=== PATIENT | female | born 1960 | race Caucasian/White ===

== ENCOUNTER 2017-10-11 13:02 | Inpatient (IN) | payer OTHER, SELFPAY ==
[~2017-10-11] VITALS: Ht 167.6 cm; Wt 82.0 kg
[2017-10-11 14:15] LABS: BASOPHILS # (AUTO) 0.02 x10^3/uL (0-0.1); BASOPHILS % (AUTO) 0 % (0-1); EOSINOPHILS # (AUTO) 0.07 x10^3/uL (0-0.4); EOSINOPHILS % (AUTO) 1 % (1-7); LYMPHOCYTES # (AUTO) 1.58 x10^3/uL (1-3.4); LYMPHOCYTES % (AUTO) 20 % (22-44); MD NO; MEAN CORPUSCULAR HEMOGLOBIN 22.7 pg (27.0-34.8); MEAN CORPUSCULAR HGB CONC 31.6 g/dL (32.4-35.8); MEAN CORPUSCULAR VOLUME 71.7 fL (80-100); MONOCYTES # (AUTO) 0.96 x10^3/uL (0.2-0.8); MONOCYTES % (AUTO) 12 % (2-9); NEUTROPHILS # (AUTO) 5.42 x10^3/uL (1.8-6.8); NEUTROPHILS % (AUTO) 67 % (42-75); PLATELET COUNT 325 x10^3/uL (130-400); RED BLOOD COUNT 6.22 x10^6/uL (3.82-5.3); RED CELL DISTRIBUTION WIDTH 15.6 % (9.6-15.2)
[2017-10-11 14:23] LABS: ALANINE AMINOTRANSFERASE 60 U/L (12-78); ALBUMIN 3.5 g/dL (3.4-5.0); ANION GAP 9 mmol/L (5-15); CALCIUM 9.1 mg/dL (8.5-10.1); CHLORIDE 93 mmol/L (98-107); CREATININE 0.83 mg/dL (0.55-1.02)
[2017-10-11] MEDS ORDERED: SPIR50TA2 PO (14:25)
[2017-10-11] MEDS ORDERED: VALS320T2 PO (14:25)
[2017-10-11 14:26] LABS: ALKALINE PHOSPHATASE 168 U/L (45-117); BILIRUBIN,TOTAL 1.2 mg/dL (0.2-1.0); TOTAL PROTEIN 6.1 g/dL (6.4-8.2)
[2017-10-11] MEDS ORDERED: VERAPAMIL 2.5 MG/ML, 2ML ONE (14:27)
[2017-10-11] MEDS ORDERED: ASPIRIN 81 MG TABLET CHEW ONE (14:27)
[2017-10-11] MEDS ORDERED: ASPIRIN 81 MG TABLET CHEW PO ONE (14:30)
[2017-10-11] MEDS ORDERED: VERAPAMIL 2.5 MG/ML, 2ML IVPush ONE (14:30)
[2017-10-11] MEDS ORDERED: SODIUM CHLORIDE FLUSH 10ML SYR IVF ONE (14:30)
[2017-10-11 14:39] LABS: INTERNATIONAL NORMALIZED RATIO 1.14 (0.93-1.1); PROTHROMBIN TIME 11.7 Seconds (9.6-11.5)
[2017-10-11 14:47] LABS: TROPONIN I < 0.015 ng/mL (0.000-0.045)
[2017-10-11] MEDS ORDERED: ENOXAPARIN 80 MG/0.8 ML ONE (14:55)
[2017-10-11] MEDS ORDERED: ENOXAPARIN 80 MG/0.8 ML SQ SCH (15:00)
[2017-10-11] MEDS ORDERED: SODIUM CHLORIDE FLUSH 10ML SYR IVF PRN (16:30)
[2017-10-11 16:47] VITALS: BP 136/93
[2017-10-11] MEDS: METOPROLOL TARTRATE 25 MG TABLET PO SCH (18:00)
[2017-10-11] MEDS ORDERED: METOCLOPRAMIDE 5 MG/ML, 2ML IVPush PRN (18:00)
[2017-10-11] MEDS ORDERED: ONDANSETRON 2MG/ML, 2ML IVPush PRN (18:00)
[2017-10-11] MEDS ORDERED: ENOXAPARIN 40 MG/0.4 ML SQ SCH (18:00)
[2017-10-11] MEDS ORDERED: ONDANSETRON ODT 4 MG PO PRN (18:00)
[2017-10-11] MEDS: SODIUM CHLORIDE 0.9% 1,000 ML IV SCH (18:00)
[2017-10-11 18:10] LABS: HEMOGLOBIN A1C 5.3 % (4.2-6.3)
[2017-10-11] MEDS: GABAPENTIN 300 MG CAPSULE PO SCH (20:31)
[2017-10-11 20:33] VITALS: BP 109/79
[2017-10-12] MEDS: SODIUM CHLORIDE 0.9% 1,000 ML IV SCH ×3 (00:37→23:24)
[2017-10-12] MEDS: METOPROLOL TARTRATE 25 MG TABLET PO SCH ×3 (00:37→23:22)
[2017-10-12] MEDS ORDERED: KETOROLAC 30 MG/1 ML IVPush ONE (02:30)
[2017-10-12 03:40] VITALS: BP 112/78
[2017-10-12] MEDS ORDERED: PNEUMOCOCCAL 23 VACCINE IM-VACC ONE ×2 (05:00→07:30)
[2017-10-12 05:01] LABS: ALBUMIN 2.9 g/dL (3.4-5.0); ANION GAP 9 mmol/L (5-15); CALCIUM 8.2 mg/dL (8.5-10.1); CHLORIDE 94 mmol/L (98-107)
[2017-10-12 05:06] LABS: ALANINE AMINOTRANSFERASE 80 U/L (12-78); ALKALINE PHOSPHATASE 176 U/L (45-117); BILIRUBIN,TOTAL 1.4 mg/dL (0.2-1.0); CREATININE 0.78 mg/dL (0.55-1.02); TOTAL PROTEIN 5.1 g/dL (6.4-8.2)
[2017-10-12] MEDS ORDERED: RIVAROXABAN 20 MG TABLET PO SCH (06:00)
[2017-10-12 06:33] LABS: BASOPHILS # (AUTO) 0.04 x10^3/uL (0-0.1); BASOPHILS % (AUTO) 1 % (0-1); EOSINOPHILS # (AUTO) 0.14 x10^3/uL (0-0.4); EOSINOPHILS % (AUTO) 2 % (1-7); LYMPHOCYTES # (AUTO) 1.66 x10^3/uL (1-3.4); LYMPHOCYTES % (AUTO) 26 % (22-44); MD SCAN; MEAN CORPUSCULAR HEMOGLOBIN 22.6 pg (27.0-34.8); MEAN CORPUSCULAR HGB CONC 31.3 g/dL (32.4-35.8); MEAN CORPUSCULAR VOLUME 72.2 fL (80-100); MEAN PLATELET VOLUME 10.6 fL (7.4-10.4); MONOCYTES # (AUTO) 0.72 x10^3/uL (0.2-0.8); MONOCYTES % (AUTO) 11 % (2-9); NEUTROPHILS # (AUTO) 3.81 x10^3/uL (1.8-6.8); NEUTROPHILS % (AUTO) 60 % (42-75); PLATELET COUNT 279 x10^3/uL (130-400); RED BLOOD COUNT 5.72 x10^6/uL (3.82-5.3); RED CELL DISTRIBUTION WIDTH 15.5 % (9.6-15.2)
[2017-10-12 07:45] VITALS: BP 105/67
[2017-10-12] MEDS ORDERED: VALSARTAN 320 MG TABLET PO SCH (09:00)
[2017-10-12] MEDS ORDERED: SPIRONOLACTONE 50 MG TABLET PO SCH (09:00)
[2017-10-12] MEDS ORDERED: MAGNESIUM SULFATE PMX 2GM/50ML 50 ML IV ONE (10:00)
[2017-10-12] MEDS: RIVAROXABAN 20 MG TABLET PO SCH (10:08)
[2017-10-12] MEDS: DIGOXIN 0.125 MG TABLET PO SCH (10:08)
[2017-10-12 10:46] LABS: LDL/HDL RATIO 0.7 (0.5-3.0)
[2017-10-12 14:02] VITALS: BP_SYST 94; BP_SYST 99; BP_DIAS 64; BP_DIAS 75
[2017-10-12] MEDS ORDERED: DIGOXIN 0.125 MG TABLET PO ONE (14:30)
[2017-10-12 17:15] VITALS: BP 120/83
[2017-10-12 17:15] LABS: MICROSCOPIC INDICATED
[2017-10-12 17:30] LABS: SODIUM,URINE RANDOM 8 mmol/L
[2017-10-12] MEDS ORDERED: METOPROLOL TARTRATE 25 MG TABLET PO SCH (17:30)
[2017-10-12 17:38] LABS: OSMOLALITY,URINE 254 mOsm/kg (500-850)
[2017-10-12] MEDS ORDERED: DIGOXIN 0.25 MG/ML, 2ML IVPush ONE (18:00)
[2017-10-12] MEDS: FUROSEMIDE 20 MG TABLET PO SCH (18:25)
[2017-10-12 18:26] VITALS: BP 110/82
[2017-10-12 19:02] VITALS: BP 123/92
[2017-10-12] MEDS: GABAPENTIN 300 MG CAPSULE PO SCH (20:37)
[2017-10-13 01:23] VITALS: BP 116/83
[2017-10-13] MEDS: METOPROLOL TARTRATE 25 MG TABLET PO SCH ×4 (05:27→23:05)
[2017-10-13 08:16] VITALS: BP 116/73
[2017-10-13] MEDS: RIVAROXABAN 20 MG TABLET PO SCH ×2 (08:32→20:22)
[2017-10-13] MEDS: FUROSEMIDE 20 MG TABLET PO SCH (08:33)
[2017-10-13] MEDS: DIGOXIN 0.125 MG TABLET PO SCH (08:33)
[2017-10-13 10:07] LABS: ANION GAP 6 mmol/L (5-15); CALCIUM 7.9 mg/dL (8.5-10.1); CHLORIDE 100 mmol/L (98-107); CREATININE 0.67 mg/dL (0.55-1.02)
[2017-10-13] MEDS: SODIUM CHLORIDE 0.9% 1,000 ML IV SCH (10:15)
[2017-10-13] MEDS: DIGOXIN 0.25 MG TABLET PO SCH (10:15)
[2017-10-13 10:30] LABS: MEAN CORPUSCULAR HEMOGLOBIN 22.6 pg (27.0-34.8); MEAN CORPUSCULAR HGB CONC 31.5 g/dL (32.4-35.8); MEAN CORPUSCULAR VOLUME 71.6 fL (80-100); MEAN PLATELET VOLUME 10.5 fL (7.4-10.4); PLATELET COUNT 274 x10^3/uL (130-400); RED BLOOD COUNT 6.12 x10^6/uL (3.82-5.3); RED CELL DISTRIBUTION WIDTH 15.3 % (9.6-15.2)
[2017-10-13] MEDS ORDERED: POTASSIUM CHLORIDE 20 MEQ TAB.ER.PRT PO ONE (10:30)
[2017-10-13] MEDS ORDERED: MAGNESIUM SULFATE PMX 2GM/50ML 50 ML IV ONE (10:30)
[2017-10-13 10:33] LABS: BASOPHILS # (AUTO) 0.07 x10^3/uL (0-0.1); BASOPHILS % (AUTO) 1 % (0-1); EOSINOPHILS # (AUTO) 0.07 x10^3/uL (0-0.4); EOSINOPHILS % (AUTO) 1 % (1-7); LYMPHOCYTES # (AUTO) 0.94 x10^3/uL (1-3.4); LYMPHOCYTES % (AUTO) 16 % (22-44); MD SCAN; MONOCYTES # (AUTO) 0.44 x10^3/uL (0.2-0.8); MONOCYTES % (AUTO) 8 % (2-9); NEUTROPHILS # (AUTO) 4.35 x10^3/uL (1.8-6.8); NEUTROPHILS % (AUTO) 74 % (42-75)
[2017-10-13 11:13] VITALS: BP 122/79
[2017-10-13] MEDS: SACUBITRIL/VALSARTAN 24MG-26MG TAB PO SCH ×2 (11:14→20:21)
[2017-10-13 14:03] VITALS: BP 139/83
[2017-10-13 17:57] VITALS: BP 113/75
[2017-10-13 19:45] VITALS: BP 114/79
[2017-10-13] MEDS: GABAPENTIN 300 MG CAPSULE PO SCH (20:21)
[2017-10-13] MEDS ORDERED: DIPHENHYDRAMINE 25 MG CAPSULE PO ONE (22:30)
[2017-10-14] VITALS (8 sets, daily range): BP systolic 113–131; BP diastolic 73–87
[2017-10-14] MEDS: SODIUM CHLORIDE 0.9% 1,000 ML IV SCH (00:14)
[2017-10-14 05:09] LABS: ANION GAP 8 mmol/L (5-15); CALCIUM 8.2 mg/dL (8.5-10.1); CHLORIDE 103 mmol/L (98-107); CREATININE 0.59 mg/dL (0.55-1.02)
[2017-10-14] MEDS: METOPROLOL TARTRATE 25 MG TABLET PO SCH ×4 (05:34→23:42)
[2017-10-14] MEDS ORDERED: REGADENOSON 0.4 MG/5 ML SYRINGE ONE (08:19)
[2017-10-14 08:27] LABS: TROPONIN I < 0.015 ng/mL (0.000-0.045)
[2017-10-14] MEDS ORDERED: MAGNESIUM SULFATE PMX 4GM/100M 100 ML IV ONE (08:30)
[2017-10-14] MEDS ORDERED: MAGNESIUM SULFATE IN WATER 50 ML IV ONE (08:42)
[2017-10-14] MEDS: SACUBITRIL/VALSARTAN 24MG-26MG TAB PO SCH ×2 (10:26→20:20)
[2017-10-14] MEDS: FUROSEMIDE 20 MG TABLET PO SCH (10:26)
[2017-10-14] MEDS: DIGOXIN 0.25 MG TABLET PO SCH (10:27)
[2017-10-14] MEDS: GABAPENTIN 300 MG CAPSULE PO SCH (20:20)
[2017-10-14] MEDS: RIVAROXABAN 20 MG TABLET PO SCH (20:20)
[2017-10-15 01:51] VITALS: BP 100/68
[2017-10-15 05:25] VITALS: BP 112/75
[2017-10-15] MEDS: METOPROLOL TARTRATE 25 MG TABLET PO SCH (05:27)
[2017-10-15 07:20] VITALS: BP 116/77
[2017-10-15] MEDS: DIGOXIN 0.25 MG TABLET PO SCH (08:30)
[2017-10-15] MEDS: SACUBITRIL/VALSARTAN 24MG-26MG TAB PO SCH (08:30)
[2017-10-15] MEDS: FUROSEMIDE 20 MG TABLET PO SCH (08:30)
[2017-10-15] MEDS ORDERED: SPIRONOLACTONE 25 MG TABLET PO SCH (09:00)
[2017-10-15 09:26] LABS: ALBUMIN 2.8 g/dL (3.4-5.0); ANION GAP 8 mmol/L (5-15); CALCIUM 8.1 mg/dL (8.5-10.1); CHLORIDE 104 mmol/L (98-107); CREATININE 0.66 mg/dL (0.55-1.02)
[2017-10-15] MEDS ORDERED: METOPROLOL SUCCINATE 50 MG TAB.ER.24H PO SCH (11:00)
[2017-10-15] MEDS ORDERED: MAGNESIUM SULFATE IN WATER 50 ML IVPB ONE (11:00)
[2017-10-15 12:06] VITALS: BP 129/94
[2017-10-15] MEDS ORDERED: GABA300C10 PO (13:10)
[2017-10-15] MEDS ORDERED: SACU1TAB PO (13:10)
[2017-10-15] MEDS ORDERED: RIVA20TA PO (13:10)
[2017-10-15] MEDS ORDERED: METO-93 PO (13:10)
[2017-10-15] MEDS ORDERED: FURO20TA3 PO (13:10)
[2017-10-15] MEDS ORDERED: SPIR25TA PO (13:10)
[2017-10-15] MEDS ORDERED: DIGO250T PO (13:10)
== END 2017-10-15 16:43 | disposition home or self-care (01) | DRG 308 ==
LOC: ED 14:48 → EDIP 16:01 → 5SO 16:43 → DCLOUNGE 10-15 16:10
PROVIDERS: ADMIT Internal Medicine; ATTEND Internal Medicine
DX: I48.91 Unspecified atrial fibrillation (principal); I50.43 Acute on chronic combined systolic (congestive) and diastolic (congestive) heart failure; D68.69 Other thrombophilia; E87.1 Hypo-osmolality and hyponatremia; I42.9 Cardiomyopathy, unspecified; E83.42 Hypomagnesemia; F10.20 Alcohol dependence, uncomplicated; F17.210 Nicotine dependence, cigarettes, uncomplicated; G25.81 Restless legs syndrome; G62.9 Polyneuropathy, unspecified; I11.0 Hypertensive heart disease with heart failure; Z79.82 Long term (current) use of aspirin; Z80.6 Family history of leukemia; Z91.19 Patient's noncompliance with other medical treatment and regimen; Z71.6 Tobacco abuse counseling; Z23 Encounter for immunization
CPT/HCPCS: 36415; 71045; 78452; 80048; 80053; 80061; 81001; 82040; 83036; 83735; 83880; 83935; 84100; 84300; 84443; 84484; 85025; 85610; 85730; 90732; 93005; 93017; 93306; 93922; 96372; 96374; J1650; J1885; J2785; A9502; C9898; J1160; J3475; J7030; Q0163

== ENCOUNTER 2017-12-13 07:40 | Day surgery (SDC) | payer OTHER ==
[~2017-12-13] VITALS: Ht 165.1 cm; Wt 77.3 kg
[~2017-12-13 07:40] MED LIST: DIGO250T PO; FURO20TA3 PO; GABA300C10 PO; METO-93 PO; RIVA20TA PO; SACU1TAB PO; SPIR25TA PO; SPIR50TA4 PO; VALS320T2 PO
[2017-12-13 08:01] VITALS: BP 144/93
[2017-12-13] MEDS ORDERED: SPIR25TA5 PO (08:13)
[2017-12-13] MEDS ORDERED: METO-264 PO (08:13)
[2017-12-13 08:47] LABS: ANION GAP 6 mmol/L (5-15); CALCIUM 9.1 mg/dL (8.5-10.1); CHLORIDE 102 mmol/L (98-107)
[2017-12-13 08:53] LABS: MEAN CORPUSCULAR HEMOGLOBIN 21.2 pg (27.0-34.8); MEAN CORPUSCULAR HGB CONC 31.4 g/dL (32.4-35.8); MEAN CORPUSCULAR VOLUME 67.4 fL (80-100); MEAN PLATELET VOLUME 10.2 fL (7.4-10.4); PLATELET COUNT 308 x10^3/uL (130-400); RED BLOOD COUNT 6.77 x10^6/uL (3.82-5.3); RED CELL DISTRIBUTION WIDTH 15.2 % (9.6-15.2)
[2017-12-13 08:58] LABS: MD YES
[2017-12-13 09:01] LABS: ANISOCYTOSIS 1+; BASOS#(MANUAL) 0.09 x10^3/uL (0-0.1); BASOS% (MANUAL) 2 % (0-1); EOS#(MANUAL) 0.18 x10^3/uL (0.0-0.4); EOS% (MANUAL) 4 % (1-7); HYPOCHROMIA 1+; LYMPH#(MANUAL) 1.58 x10^3/uL (1-3.4); LYMPHS% (MANUAL) 36 % (22-44); MONOS% (MANUAL) 9 % (2-9); REACTIVE LYMPHS # (MANUAL) 0.09 x10^3/uL (0-0); REACTIVE LYMPHS % (MANUAL) 2 % (0-0); SEG#(MANUAL) 2.07 x10^3/uL (1.8-6.8); SEGS% (MANUAL) 47 % (42-75)
[2017-12-13 09:02] LABS: <PLATELET ESTIMATE> ADEQUATE; MICROCYTOSIS 1+
[2017-12-13 09:03] LABS: <PLT MORPHOLOGY> NORMAL PLT MORPH
== END 2017-12-13 10:46 | disposition home or self-care (01) ==
LOC: CACL 07:40
PROVIDERS: ATTEND Internal Medicine Cardiovascular Disease
DX: I48.91 Unspecified atrial fibrillation (principal); I11.0 Hypertensive heart disease with heart failure; I50.9 Heart failure, unspecified; F10.20 Alcohol dependence, uncomplicated; F17.210 Nicotine dependence, cigarettes, uncomplicated; G62.9 Polyneuropathy, unspecified; Z79.01 Long term (current) use of anticoagulants; Z86.79 Personal history of other diseases of the circulatory system; Z79.899 Other long term (current) drug therapy; Z79.82 Long term (current) use of aspirin
CPT/HCPCS: 36415; 80048; 80162; 85025; 92960